=== PATIENT | male | born 1955 | race Caucasian/White ===

== ENCOUNTER 2019-09-28 07:28 | Emergency (ER) | payer OTHER ==
[2019-09-28] MEDS ORDERED: Lidocaine 1% with EPINEPHrine 1:100,000 50 ML MDV SUBCUT STA (08:21)
[2019-09-28] MEDS ORDERED: Bacitracin Oint 1 GM U/D Packet TOP ONE (08:54)
--- NOTE | 2019-09-28 08:55 | EDM.PDOC ---
ED HPI GENERAL MEDICAL PROBLEM - General Chief Complaint: General Stated Complaint: BIG SLIVER IN RT CALF Time Seen by Provider: 09/28/19 08:14 Source of Information: Reports: Patient, RN Notes Reviewed History Limitations: Reports: No Limitations - History of Present Illness INITIAL COMMENTS - FREE TEXT/NARRATIVE: 63-year-old gentleman presents emergency department today with complaint of a foreign body in his right leg he fell last night on the wooden deck he believes this is a piece of treated lumbar, he attempted to get this out himself unfortunately the sliver broke and now has a piece of embedded wood in his right lower calf - Related Data Allergies Allergy/AdvReac Type Severity Reaction Status Date / Time No Known Allergies Allergy Verified 09/28/19 07:49 Home Meds: Home Meds Methylphenidate [Ritalin] 1 tab PO DAILY 09/28/19 [History] Tamsulosin HCl 1 tab PO DAILY 09/28/19 [History] clonazePAM [Clonazepam] 1 tab PO DAILY 09/28/19 [History] Past Medical History Neurological History: Reports: MS Social & Family History - Tobacco Use Smoking Status *Q: Current Every Day Smoker Years of Tobacco use: 45 Packs/Tins Daily: 1 ED ROS GENERAL - Review of Systems Review Of Systems: See Below Constitutional: Reports: No Symptoms Skin: Reports: Wound ED EXAM, GENERAL - Physical Exam Exam: See Below Free Text/Narrative:: Examination of the area on the right calf there is a palpable foreign body however there is no opening in the skin ultrasound is done of the area reveals a foreign body ED GENERAL MEDICAL PROCEDURES - Additional/Other Procedure(s) Other (Free Text) Procedure(s): Preoperative diagnosis foreign body right calf Postoperative diagnosis 4 cm piece of treated lumbar removed from right calf Surgeon Sy OfficerMD Verbal consent was obtained prior to procedure risks and benefits were discussed patient is in agreement and wishes to proceed. Anesthesia 2 cc lidocaine with epinephrine local injection Estimated blood loss 2 mils Specimens 4 cm piece of treated lumbar Summary procedure: Timeout was performed prior to initiation procedure identified correct site, correct patient and correct procedure. The wound was cleaned with alcohol wipes ultrasound was used to identify the largest aspect of this foreign body after adequate anesthesia with 1% lidocaine with epinephrine used for local injection. A #15 blade was used to create a 1 cm incision alongside the largest portion of the foreign body. Next a curved hemostat was used to grasp the foreign body and it was removed. Next the wound was cleansed with water 4-0 Ethilon was used to close the wound one interrupted suture, wound was then dressed with bacitracin Complications none apparent Disposition discharged to home wound care instruction sheet suture removal in 10 days Course - Vital Signs Last Recorded V/S: Last Vital Signs Temp 98.4 F 09/28/19 07:55 Pulse 76 09/28/19 07:55 Resp 15 09/28/19 07:55 BP 140/98 H 09/28/19 07:55 Pulse Ox 96 09/28/19 07:55 - Orders/Labs/Meds Meds: Medications Discontinued Medications Generic Name Dose Route Start Last Admin Trade Name Karlene PRN Reason Stop Dose Admin Lidocaine/Epinephrine 20 ml 09/28/19 08:21 Xylocaine 1% With Epinephrine 1:100,000 SUBCUT 09/28/19 08:22 NOW STA Departure - Departure Time of Disposition: 08:54 Disposition: Home, Self-Care 01 Condition: Good Clinical Impression: Foreign body of right lower leg Qualifiers: Encounter type: initial encounter Qualified Code(s): S80.851A - Superficial foreign body, right lower leg, initial encounter - Discharge Information Instructions: Sliver Removal, Care After Referrals: PCP,None [Primary Care Provider] - Additional Instructions: Follow wound care instruction sheet,, return to the emergency department or follow-up with your primary care for suture removal, call or return to the emergency department with worsening of symptoms, take full course of antibiotics Sepsis Event Note (ED) - Evaluation Sepsis Screening Result: No Definite Risk - Focused Exam Vital Signs: Vital Signs Temp Pulse Resp BP Pulse Ox 09/28/19 07:55 98.4 F 76 15 140/98 H 96 09/28/19 07:42 98.4 F 76 15 140/98 H 96 - Assessment/Plan Plan: Assessment Acuity = acute Site and laterality = 4 cm foreign body status post removal right lower extremity Etiology = treated lumbar from decking Manifestations = none Location of injury = Home Lab values = none Plan Prescription written for Keflex 500 mg p.o. 4 times daily x7 days follow-up with primary care in 7 to 10 days for suture removal This note was dictated using [employer] voice recognition software please call with any questions on syntax or grammar.
== END 2019-09-28 09:04 | disposition home or self-care (01) ==
LOC: JP.ED 07:28
DX: S80.851A Superficial foreign body, right lower leg, initial encounter (principal); F17.210 Nicotine dependence, cigarettes, uncomplicated; Z79.899 Other long term (current) drug therapy; W45.8XXA Other foreign body or object entering through skin, initial encounter
CPT/HCPCS: 10120; 99283-25